=== PATIENT | male | born 1990 | race Caucasian/White ===

== ENCOUNTER 2020-10-16 17:38 | Emergency (ER) | payer MEDICARE, SELFPAY ==
[~2020-10-16] VITALS: Ht 185.4 cm; Wt 77.5 kg
[2020-10-16] MEDS ORDERED: KEPP10002 PO ×2 (17:56)
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
[2020-10-16 21:11] VITALS: BP 132/74
== END 2020-10-16 21:12 | disposition home or self-care (01) ==
LOC: M ED 17:38
DX: S00.83XA Contusion of other part of head, initial encounter (principal); S50.812A Abrasion of left forearm, initial encounter; S80.812A Abrasion, left lower leg, initial encounter; Y04.8XXA Assault by other bodily force, initial encounter; Y92.019 Unspecified place in single-family (private) house as the place of occurrence of the external cause; Y93.9 Activity, unspecified; Y99.9 Unspecified external cause status; F17.200 Nicotine dependence, unspecified, uncomplicated